=== PATIENT | male | born 1970 | race African-American/Black ===

== ENCOUNTER 2016-09-28 11:24 | Emergency (ER) | payer MEDICAID ==
[~2016-09-28] VITALS: Ht 188 cm; Wt 100.0 kg
[~2016-09-28 11:24] MED LIST: WELL200T PO; ZYPR2.5T2 PO
[2016-09-28 11:25] VITALS: BP 121/79; PULSE 74; RESP 16; TEMP 97.9; O2SAT 98
--- NOTE | 2016-09-28 12:01 | PD ---
HPI Chief Complaint: Abdominal Pain Time Seen by Provider: 12:01 Travel History International Travel<30 days: No Contact w/Intl Traveler<30days: No Traveled to known affect area: No History of Present Illness HPI 46-year-old male with history of hernia repair 5 years ago presents to the emergency department for evaluation of generalized severe abdominal pain mostly superior to the umbilicus with associated loose stools, nausea, vomiting. It is intermittent and sharp. Patient states this began about 4 days ago. He has been afebrile and without chills. No chest pain or tightness. No difficulty breathing. He cannot think of any exacerbating or alleviating factors. He has no other symptoms to report. PFSH Past Medical History Asthma: No Blood Disorders: No Bipolar Disorder: Yes (DENIES HISTORY TODAY) Anxiety: No Depression: Yes (SOMETIMES) Heart Rhythm Problems: No Cancer: No Cardiovascular Problems: No High Cholesterol: No Chemotherapy: No Chest Pain: No Congestive Heart Failure: No COPD: No Diabetes: No Diminished Hearing: No Endocrine: No Gastrointestinal Disorders: Yes (HERNIA) Genitourinary: No Hypertension: No Immune Disorder: No Musculoskeletal: No Neurologic: No Psychiatric: Yes (MULTIPLE PERSONALITY) Reproductive: No Respiratory: No Integumentary: Yes (KELOIDS) Myocardial Infarction: No Radiation Therapy: No Schizophrenia: Yes (DENIES HISTORY TODAY) Sleep Apnea: No Thyroid Disease: No Past Surgical History Abdominal Surgery: Yes (HERNIA REPAIR X2) Other Surgery: Yes (HERNIA ) Social History Alcohol Use: No Tobacco Use: Yes (3-4 CIGARETTES/DAY) Substance Use: No Allergies-Medications (Allergen,Severity, Reaction): Coded Allergies: No Known Allergies (Verified , 07/18/15) Reported Meds & Prescriptions Reported Meds & Active Scripts Active Reported Zyprexa (Olanzapine) 2.5 Mg Tab 0 PO BID Wellbutrin Sr (Bupropion Hcl) 200 Mg Tab 200 Mg PO HS Review of Systems Except as stated in HPI: all other systems reviewed are Neg Physical Exam Narrative GENERAL: Well-nourished male patient, in no acute distress SKIN: Warm and dry. HEAD: Atraumatic. Normocephalic. EYES: Pupils equal and round. No scleral icterus. No injection or drainage. ENT: No nasal bleeding or discharge. Mucous membranes pink and moist. NECK: Trachea midline. No JVD. CARDIOVASCULAR: Regular rate and rhythm. No murmur appreciated. RESPIRATORY: No accessory muscle use. Clear to auscultation. Breath sounds equal bilaterally. GASTROINTESTINAL: Abdomen soft, nondistended. Mild tenderness elicited to palpation in the epigastrium. hepatic and splenic margins not palpable. MUSCULOSKELETAL: No obvious deformities. No clubbing. No cyanosis. No edema. NEUROLOGICAL: Awake and alert. No obvious cranial nerve deficits. Motor grossly within normal limits. Normal speech. Data Data Last Documented VS Vital Signs Date Time Temp Pulse Resp B/P Pulse Ox O2 Delivery O2 Flow Rate FiO2 09/28/16 11:25 97.9 74 16 121/79 98 Room Air Orders Complete Blood Count With Diff (09/28/16 12:00) Urinalysis - C+S If Indicated (09/28/16 12:00) Abdomen, Flat & Upright (09/28/16 ) Labs Laboratory Tests Test 09/28/16 09/28/16 12:34 12:35 White Blood Count 9.0 TH/MM3 Red Blood Count 5.20 MIL/MM3 Hemoglobin 15.9 GM/DL Hematocrit 47.2 % Mean Corpuscular Volume 90.9 FL Mean Corpuscular Hemoglobin 30.7 PG Mean Corpuscular Hemoglobin 33.7 % Concent Red Cell Distribution Width 14.8 % Platelet Count 221 TH/MM3 Mean Platelet Volume 10.3 FL Neutrophils (%) (Auto) 54.3 % Lymphocytes (%) (Auto) 34.4 % Monocytes (%) (Auto) 8.7 % Eosinophils (%) (Auto) 1.9 % Basophils (%) (Auto) 0.7 % Neutrophils # (Auto) 4.9 TH/MM3 Lymphocytes # (Auto) 3.1 TH/MM3 Monocytes # (Auto) 0.8 TH/MM3 Eosinophils # (Auto) 0.2 TH/MM3 Basophils # (Auto) 0.1 TH/MM3 CBC Comment DIFF FINAL Differential Comment Urine Color YELLOW Urine Turbidity CLEAR Urine pH 5.0 Urine Specific [place] 1.016 Urine Protein NEG mg/dL Urine Glucose (UA) NEG mg/dL Urine Ketones NEG mg/dL Urine Occult Blood NEG Urine Nitrite NEG Urine Bilirubin NEG Urine Urobilinogen LESS THAN 2.0 MG/DL Urine Leukocyte Esterase NEG Urine WBC 1 /hpf Urine Squamous Epithelial <1 /hpf Cells Urine Mucus FEW /lpf Microscopic Urinalysis Comment CULT NOT INDICATED MDM Medical Decision Making Medical Screen Exam Complete: Yes Emergency Medical Condition: Yes Medical Record Reviewed: Yes Differential Diagnosis Recurrent hernia versus gastroenteritis versus adhesions versus obstruction versus cholelithiasis versus cholecystitis Narrative Course 46-year-old male presents to the emergency primary for evaluation. Workup was initiated in triage. Once a medical bed becomes available, patient will be transferred and care assumed by that provider. Ferozasion comes back to the triage desk stating that he does not want wait for a room. He is advised that if he chose to leave at this time we do not have his results and we do not know exactly what is wrong with him. He is informed that this decision could worsen his condition, resulting in organ injury, paralysis, or even . It is being cleared this is not limited to these. He is competent to make the decision and chooses to leave at this time AGAINST MEDICAL ADVICE. Diagnosis Primary Impression: Abdominal pain Qualified Code: R10.13 - Epigastric pain Additional Impression: Left against medical advice Condition: Stable LlanosMarifer helton SAMUEL Sep 28, 2016 12:01
--- NOTE | 2016-09-28 12:55 | RADRPT ---
EXAM DATE/TIME: 09/28/2016 12:30 [facility] COMPARISON: No previous studies available for comparison. INDICATIONS : Vomiting and diarrhea. MEDICAL HISTORY : None. SURGICAL HISTORY : Inguinal hernia repair. ENCOUNTER: Initial ACUITY: 4 - 6 days PAIN SCORE: 8/10 LOCATION: Abdomen FINDINGS: Supine and upright views of the abdomen were performed. The abdominal bowel gas pattern is normal. No air fluid levels are seen. No abnormal masses, calcifications, or organomegaly is seen. Moderate stool is present throughout the colon. The visualized lower lungs are clear. No evidence of free in traperitoneal gas. The osseous structures are unremarkable. CONCLUSION: Moderate stool otherwise negative. Anand Nicolas MD FACR on September 28, 2016 at 12:53 Board Certified Radiologist. This report was verified electronically.
[2016-09-28 13:14] LABS: BLOOD, URINE NEG (NEG); GLUCOSE,URINE NEG (NEG); KETONE, URINE NEG (NEG); MUCUS URINE FEW /lpf (OCC); NITRITE,URINE NEG (NEG); SQUAMOUS EPITHELIAL CELL URINE <1 /hpf (0-5); URINE COLOR YELLOW (YELLW/STRAW)
[2016-09-28 13:15] LABS: COMMENT (UR) CULT NOT INDICATED; CULTURE IF INDICATED CULT NOT INDICATED
[2016-09-28 13:17] LABS: AUTOMATED NEUTROPHIL # 4.9 TH/MM3 (1.8-7.7); BASOPHIL # 0.1 TH/MM3 (0-0.2); BASOPHIL % 0.7 % (0.0-2.0); EOSINOPHIL # 0.2 TH/MM3 (0-0.4); EOSINOPHIL % 1.9 % (0.0-4.0); HEMATOCRIT 47.2 % (39.0-51.0); HEMO FLAGS DIFF FINAL; LYMPH % 34.4 % (9.0-44.0); LYMPHOCYTE # 3.1 TH/MM3 (1.0-4.8); MEAN CELL VOLUME 90.9 FL (80.0-100.0); MEAN CORPUSCULAR HEMOGLOBIN 30.7 PG (27.0-34.0); MEAN CORPUSCULAR HGB CONC 33.7 % (32.0-36.0); MONO % 8.7 % (0.0-8.0); NEUT % 54.3 % (16.0-70.0); PLATELET COUNT 221 TH/MM3 (150-450); RED CELL DISTRIBUTION WIDTH 14.8 % (11.6-17.2)
== END 2016-09-28 16:33 | disposition left against medical advice (07) ==
LOC: NETRI 11:24
DX: R10.13 Epigastric pain (principal); R19.7 Diarrhea, unspecified; R11.2 Nausea with vomiting, unspecified; Z53.29 Procedure and treatment not carried out because of patient's decision for other reasons; Z72.0 Tobacco use; Z86.59 Personal history of other mental and behavioral disorders; Z87.19 Personal history of other diseases of the digestive system; Z87.2 Personal history of diseases of the skin and subcutaneous tissue
CPT/HCPCS: 74020; 81001; 85025; 99284